=== PATIENT | female | born 1995 | race Two or more races ===

== ENCOUNTER 2017-12-08 06:43 | Emergency (ER) | payer BC ==
[~2017-12-08] VITALS: Ht 149.9 cm; Wt 55.3 kg
[2017-12-08 07:03] VITALS: Ht 149.9 cm; Wt 55.3 kg
[2017-12-08 07:46] LABS: BASOPHIL % 0.2 % (0-2); PLATELET COUNT 368 x10^3mcL (130-400); RED CELL DISTRIBUTION WIDTH 12.6 % (11.5-14.5)
[2017-12-08 07:47] LABS: CALCIUM 8.9 mg/dL (8.5-10.1); CARBON DIOXIDE 24.4 mmol/L (21-32); CHLORIDE SERUM 103 mmol/L (98-107); GFR1 > 60 mL/min; GLUCOSE SERUM 141 mg/dL (74-106); POTASSIUM SERUM 3.9 mmol/L (3.5-5.1); SODIUM SERUM 140 mmol/L (136-145)
[2017-12-08 07:51] LABS: ALBUMIN 3.8 g/dL (3.4-5.0); ALKALINE PHOSPHATASE 40 U/L (46-116); ALT/SGPT 20 U/L (14-59); AMYLASE 61 U/L (25-115); AST/SGOT 14 U/L (15-37); BILIRUBIN TOTAL 0.5 mg/dL (0.20-1.00); LIPASE 158 IU/L (73-393); TOTAL PROTEIN, SERUM 7.4 g/dL (6.4-8.2)
[2017-12-08 11:09] VITALS: BP 100/56
== END 2017-12-08 11:09 | disposition home or self-care (01) ==
LOC: ED 06:43
PROVIDERS: Specialist
DX: R10.13 Epigastric pain (principal)
CPT/HCPCS: 83880; J1885; J2405; J3490; J7030; Q0092